=== PATIENT | female | born 1975 | race Caucasian/White ===

== ENCOUNTER 2018-11-26 21:38 | Emergency (ER) | payer SELFPAY ==
--- NOTE | 2018-11-26 22:00 | Emergency Department Record ---
History of Present Illness - General Chief complaint: ENT Stated complaint: PLUGGED EAR,COUGH, Time Seen by Provider: 11/26/18 21:57 Source: Patient Mode of Arrival: Ambulatory Limitations: No limitations - History of Present Illness Initial comments: 43 yo female presents to ED for evaluation or continued right ear pain despite taking Augmentin for the past 6 days. Patient reports continued pain posterior to the right ear, denies fevers, chills, or recent illness. Patient denies health problems at her baseline. MD complaint: Ear pain Onset/Timin -: Days(s) Location: R ear Severity: Moderate Severity scale (1-10): 4 Quality: Aching Consistency: Constant Improves with: None Worsens with: None - Related Data Home Medications Medication Instructions Recorded Confirmed Last Taken Loratadine [Claritin] 10 mg PO 11/26/18 11/26/18 Allergies Allergy/AdvReac Type Severity Reaction Status Date / Time No Known Drug Allergies Allergy Verified 11/26/18 21:54 Travel Screening - Travel/Exposure Within Last 30 Days Have you traveled within the last 30 days?: No Review of Systems Constitutional: Denies: Chills, Fever, Malaise, Night sweats Eyes: Denies: Eye discharge, Eye pain ENT: Reports: Ear pain. Denies: Dental pain, Epistaxis Respiratory: Denies: Cough, Dyspnea Cardiovascular: Denies: Chest pain, Dyspnea on exertion Endocrine: Denies: Fatigue, Heat or cold intolerance Gastrointestinal: Denies: Abdominal pain, Nausea, Vomiting Genitourinary: Denies: Incontinence, Retention Musculoskeletal: Denies: Arthralgia, Back pain Skin: Denies: Bruising, Change in color Neurological: Reports: Headache. Denies: Abnormal gait, Confusion, Seizure Psychiatric: Denies: Anxiety Hematological/Lymphatic: Denies: Anemia, Blood Clots Past Medical History - SOCIAL HISTORY Smoking Status: Former smoker Alcohol Use: Rare Drug Use: None - RESPIRATORY Hx Respiratory Disorders: No - CARDIOVASCULAR Hx Cardio Disorders: No - NEURO Hx Neuro Disorders: No - GI Hx GI Disorders: No - Hx Genitourinary Disorders: No - ENDOCRINE Hx Endocrine Disorders: No - MUSCULOSKELETAL Hx Musculoskeletal Disorders: No - PSYCH Hx Psych Problems: No - HEMATOLOGY/ONCOLOGY Hx Hematology/Oncology Disorders: No Family Medical History Any Significant Family History?: No Physical Exam - General General Appearance: Alert, Oriented x3, Cooperative, Mild distress Limitations: No limitations - Head Head exam: Atraumatic, Normocephalic, Normal inspection Head exam detail: negative: Abrasion, Contusion, Ortiz's sign, General tenderness, Hematoma, Laceration - Eye Eye exam: Normal appearance. negative: Conjunctival injection, Periorbital swelling, Periorbital tenderness, Scleral icterus - ENT Ear exam: Other (TTP over tate right posterior auricular/mastoid region on examination.). negative: Auricular hematoma, Auricular trauma Nasal Exam: negative: Active bleeding, Discharge, Dried blood, Foreign body Mouth exam: negative: Drooling, Laceration, Muffled voice, Tongue elevation Throat exam: negative: Tonsillar erythema, Tonsillomegaly, Tonsillar exudate, R peritonsillar mass, L peritonsillar mass - Neck Neck exam: Normal inspection. negative: Meningismus, Tenderness - Respiratory Respiratory exam: Normal lung sounds bilaterally. negative: Rales, Respiratory distress, Rhonchi, Stridor - Cardiovascular Cardiovascular Exam: Regular rate, Normal rhythm, Normal heart sounds - GI/Abdominal GI/Abdominal exam: Soft. negative: Rebound, Rigid, Tenderness - Rectal Rectal exam: Deferred - exam: Deferred - Extremities Extremities exam: Normal inspection. negative: Pedal edema, Tenderness - Back Back exam: Denies: CVA tenderness (R), CVA tenderness (L) - Neurological Neurological exam: Alert, Normal gait, Oriented X3 - Psychiatric Psychiatric exam: Normal affect, Normal mood - Skin Skin exam: Normal color. negative: Abrasion Type of lesion: negative: abrasion Course Vital Signs 11/26/18 11/26/18 21:46 21:47 Temperature 98.2 F Pulse Rate [ 80 Left] Respiratory 16 Rate Blood Pressure 136/80 [Left Arm] Pulse Ox 96 - Reevaluation(s) Reevaluation #1: 11/26/18 23:03 CT Brain: Fluid throughout the right middle ear and right mastoid air cells suggesting mastoiditis and possible otitis media. 11/26/18 23:08 Patient was updated on her CT imaging result Zosyn 4.5 grams IV ordered to initiate treatment. Will initiate transfer to [facility] for ENT consultation. Reevaluation #2: 11/26/18 23:22 [facility] 1-call returned call, ENT (Dr. Vela) does not perform mastoid surgery if needed. Patient was updated, will call [facility] per patient choice for transfer. Reevaluation #3: 11/26/18 23:[address] Romano (ENT on-call), will discuss with his attending and call back. 11/27/18 00:21 Case was discussed with Dr. Tang at [facility], they are currently at capacity and cannot accept the transfer. Reevaluation #4: 11/27/18 00:41 Laboratory studies were reviewed and appear grossly unremarkable for an acute process except for the following: CRP 2.32 ESR: 41 HF [facility] was contacted and are also at capacity. Currently have a call to [facility] for ENT consultation. Reevaluation #5: 11/27/18 01:05 Case was discussed with [facility], will accept the patient for ENT consultation. Patient was updated on all results, will initiate transfer. 11/27/18 01:08 [facility] called back, cannot accept the patient due to capacity. Will call [facility] for consultation. 11/27/18 01:51 Case was discussed with Dr. Mello (ENT [facility]), discussed patient's laboratory findings and examination, would like to see the patient in the office at noon (10 hours). Patient is in agreement with the plan of care as discussed. Medical Decision Making - Lab Data Result diagrams: 11/26/18 23:20 11/26/18 23:20 Critical Care Time Critical Care Time: Yes Total Critical Care Time: 60 Critical Care Time: Diagnosis and management of mastoiditis, IV antibiotic administration, numerous consultations for transfer and to arrange follow-up, frequent reassessments. Disposition Disposition: Discharge Clinical Impression: Mastoiditis of right side Disposition: Home, Self-Care Condition: (2) Stable Instructions: Mastoiditis (ED) Additional Instructions: Return to ED if your symptoms worsen or if you have any concerns. Follow-up with Dr. Calabrese at 10:00 AM today: Agatha Cheo Arreaga [address], [address] Phone #: [phone] Forms: Patient Portal Access Time of Disposition: 01:58 Quality - Quality Measures Quality Measures: N/A - Blood Pressure Screening Does Patient Have Any of the Following: No Blood Pressure Classification: Pre-Hypertensive BP Reading Systolic Measurement: 130 Diastolic Measurement: 81 Screening for High Blood Pressure: < Pre-Hypertensive BP, F/U Documented > [P5 127] Pre-Hypertensive Follow-up Interventions: Referral to alternative/primary care provider.
[2018-11-26] MEDS ORDERED: PIPERACILLIN SODIUM/TAZOBACTAM 4.5 GM in 0.9 % SODIUM CHLORIDE 100ML 100 ML IVPB ONE (23:10)
[2018-11-26 23:28] LABS: ABSOLUTE NEUTROPHIL COUNT 4.62; HEMOGLOBIN 12.4 gm/dl (11.6-16.0); RED BLOOD COUNT 4.23 M/uL (3.80-5.40); WHITE BLOOD COUNT W/O DIFF 8.4 K/uL (4.2-12.2)
[2018-11-26 23:29] LABS: BASO % 0.8 % (0-6); EOS % 3.8 % (0-6); GRAN % 55.1 % (47-80); HEMATOCRIT 38.7 % (35.0-47.0); MEAN CELL VOLUME 91.5 fl (81-97); MEAN CORPUSCULAR HEMOGLOBIN 29.3 pg (27-33); MEAN PLATELET VOLUME 9.4 fl (7.4-10.4); MONO % 7.3 % (0-9); PLATELET COUNT 593 K/uL (130-400); RED CELL DISTRIBUTION WIDTH 12.8 % (11.5-14.5)
[2018-11-26 23:41] LABS: BLOOD UREA NITROGEN 6 mg/dL (6-20); CREATININE 0.8 mg/dL (0.5-0.9); EST GLOMERULAR FILTRATION RATE > 60 mL/min
[2018-11-26 23:42] LABS: TOTAL PROTEIN 6.7 g/dL (6.6-8.7)
[2018-11-26 23:44] LABS: GLUCOSE,RANDOM 100 mg/dL (74-109)
[2018-11-26 23:47] LABS: ALB/GLOB RATIO 1.3 (1.1-1.8); ALBUMIN 3.8 g/dL (4.0-5.0); ALKALINE PHOSPHATASE 146 U/L (35-104); ALT/SGPT 57 U/L (<33); AST/SGOT 27 U/L (10.0-35.0); C-REACTIVE PROTEIN 2.32 mg/dL (<0.5)
[2018-11-27 00:04] LABS: ERYTHROCYTE SEDIMENTATION RATE 41 mm/hr (0-20)
[2018-11-27] MEDS ORDERED: IBUPROFEN 400 MG TABLET PO ONE (00:43)
--- NOTE | 2018-11-28 05:33 | CT SCAN REPORT ---
EXAM: CT SCAN HEAD WO CONTRAST HISTORY: PAIN IN RIGHT MASTOID AREA. PATIENT CANNOT HEAR OUT OF RIGHT EAR. TECHNIQUE: Routine noncontrast CT of the brain. COMPARISON: None. FINDINGS: The ventricles and subarachnoid spaces are normal in size. No area of abnormally increased or decreased attenuation is noted throughout the brain substance. The hedrick-white interfaces are distinct. No extra-axial fluid collection nor mass. No acute skull abnormality. There is opacification of much of the middle ear cavity and the majority of mastoid air cells. No definite mastoid air cell coalescence is seen, however. There is opacification of a few inferior left mastoid air cells. Minor mucosal thickening is noted within the inferior aspects of the frontal sinuses and a few bilateral ethmoid air cells as well as the left maxillary sinus. The orbits, as visualized, are unremarkable. IMPRESSION: 1. OPACIFICATION OF MUCH OF THE RIGHT MIDDLE EAR CAVITY SUSPICIOUS FOR MASTOIDITIS. NO DEFINITE ASSOCIATED BONE DESTRUCTION. THERE IS ALSO FLUID/OPACIFICATION OF THE MAJORITY OF RIGHT MASTOID AIR CELLS WITHOUT COALESCENCE CONSISTENT WITH NONSPECIFIC EFFUSION. MASTOIDITIS NOT EXCLUDED. OPACIFICATION OF A FEW INFERIOR LEFT MASTOID AIR CELLS WELL. 2. MINOR MUCOSAL THICKENING IN SEVERAL PARANASAL SINUSES. JOB NUMBER: [] MTDD
== END 2018-11-27 02:10 | disposition home or self-care (01) ==
LOC: ER 21:38
DX: H70.091 Acute mastoiditis with other complications, right ear (principal); Z87.891 Personal history of nicotine dependence
CPT/HCPCS: 70450; 80053; 85025; 85651; 86140; 96365; 99285; J2543

== ENCOUNTER 2019-03-28 20:57 | Emergency (ER) | payer MEDICAID ==
--- NOTE | 2019-03-28 21:04 | Emergency Department Record ---
History of Present Illness - General Chief complaint: Pain Stated complaint: HAS PAIN FROM A SHOT Time Seen by Provider: 03/28/19 21:01 Source: Patient Mode of Arrival: Ambulatory Limitations: No limitations - History of Present Illness Initial comments: 43 yo female presents with localized pain in her buttocks at the site of a rocephin injection. No fevers. No distal numbness, tingling or weakness. She has had rocephin in the past without similar symptoms. The shot was 6 days ago. MD Complaint: Other -: Days(s) (6) Location: Other History of Same: No Radiation: Other Quality: Aching Consistency: Constant Improves with: Nothing Worsens with: Palpation Associated Symptoms: Denies other symptoms - Related Data Home Medications Medication Instructions Recorded Confirmed Last Taken Acetaminophen with Codeine 1 each PO DAILY 03/28/19 03/28/19 Unknown [Tylenol with Codeine #3 Tablet] Allergies Allergy/AdvReac Type Severity Reaction Status Date / Time levofloxacin [From Levaquin] Allergy JOINT ACHES Verified 01/27/19 23:31 narcotis Allergy VOMITING Uncoded 01/27/19 23:31 Review of Systems Constitutional: Denies: Chills, Fever, Malaise, Weakness Eyes: Denies: Eye discharge ENT: Reports: Congestion (treated for a sinus infection). Denies: Throat pain Respiratory: Denies: Cough Cardiovascular: Denies: Chest pain, Syncope Endocrine: Denies: Fatigue Gastrointestinal: Denies: Abdominal pain, Diarrhea, Nausea, Vomiting Musculoskeletal: Reports: Other Skin: Denies: Bruising, Change in color, Rash Neurological: Denies: Headache Psychiatric: Denies: Anxiety Hematological/Lymphatic: Denies: Easy bleeding, Easy bruising Past Medical History - SOCIAL HISTORY Smoking Status: Former smoker Drug Use: None - RESPIRATORY Hx Respiratory Disorders: No - CARDIOVASCULAR Hx Cardio Disorders: No - NEURO Hx Neuro Disorders: No - GI Hx GI Disorders: Yes Hx Reflux: Yes - Hx Genitourinary Disorders: Yes Hx Kidney Stones: Yes - ENDOCRINE Hx Endocrine Disorders: No - MUSCULOSKELETAL Hx Musculoskeletal Disorders: No - PSYCH Hx Psych Problems: No - HEMATOLOGY/ONCOLOGY Hx Hematology/Oncology Disorders: No Family Medical History Hx Heart Disease: Brother/Sister Physical Exam - General General Appearance: Alert, Oriented x3, Cooperative, No acute distress Limitations: No limitations - Head Head exam: Atraumatic - Eye Eye exam: Normal appearance - ENT ENT exam: Normal exam Ear exam: Normal external inspection Nasal Exam: Normal inspection - Neck Neck exam: Normal inspection - Respiratory Respiratory exam: Normal lung sounds bilaterally. negative: Respiratory distress - Cardiovascular Cardiovascular Exam: Regular rate, Normal rhythm, Normal heart sounds - Rectal Rectal exam: Deferred - exam: Deferred - Extremities Extremities exam: Full ROM, Tenderness. negative: Pedal edema Image of Full Body: 1 - 2cm bruise, no swelling, no firmness, no redness or erythema, no fluctuance, no signs of bleeding, hematoma or infection - Back Back exam: Reports: Full ROM. Denies: CVA tenderness (R), CVA tenderness (L), Tenderness - Neurological Neurological exam: Alert, Normal gait, Oriented X3, Other (Normal foot flexion and extension, normal SLT). negative: Abnormal gait, Motor sensory deficit - Psychiatric Psychiatric exam: Normal affect, Normal mood. negative: Agitated, Anxious - Skin Skin exam: Dry, Intact, Normal color, Warm Course - Reevaluation(s) Reevaluation #1: 03/28/19 21:20 Normal examination except the 2cm superficial bruise The examination does not demonstrate any signs of adverse reaction, allergic reaction, infection, swelling, hematoma I offered CT if not improving in the next 1-2 days. No indication at this time for CT with radiation risk vs benefit with very normal examination Disposition Disposition: Discharge Clinical Impression: Myalgia, Localized adverse drug reaction Disposition: Home, Self-Care Condition: (1) Good Additional Instructions: Return or be seen immediately if you have redness, swelling or fever Return to be rechecked if the pain is worse in the next 1-2 days Rest. Ice the area 3-4 times. I recommend to prolonged standing or walking Forms: Patient Portal Access Time of Disposition: 21:18 Quality - Quality Measures Quality Measures: N/A - Blood Pressure Screening Does Patient Have Any of the Following: No Blood Pressure Classification: Pre-Hypertensive BP Reading Systolic Measurement: 130 Diastolic Measurement: 78 Screening for High Blood Pressure: < Pre-Hypertensive BP, F/U Documented > [G2658] Pre-Hypertensive Follow-up Interventions: Referral to alternative/primary care provider.
== END 2019-03-28 21:33 | disposition home or self-care (01) ==
LOC: ER 20:57
DX: T36.1X5A Adverse effect of cephalosporins and other beta-lactam antibiotics, initial encounter (principal); R52 Pain, unspecified; Z87.891 Personal history of nicotine dependence
CPT/HCPCS: 99282

== ENCOUNTER 2019-04-25 21:43 | Emergency (ER) | payer MEDICAID ==
--- NOTE | 2019-04-25 21:59 | Emergency Department Record ---
History of Present Illness - General Chief complaint: Pain Stated complaint: ALL OVER PAIN Time Seen by Provider: 04/25/19 21:56 Source: Patient Mode of Arrival: Ambulatory Limitations: No limitations - History of Present Illness Initial comments: 43 yo female presents with pain all over her body. 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 No fever. No skin changes, no joint swelling or abnormal warmth. She has chronic symptoms. She has recently seen a photo machine operator and has a follow visit to review symptoms. MD Complaint: Diffuse Onset/Timin -: Days(s) Location: Bilateral, Arm, Foot, Lower Leg, Shoulder History of Same: Yes Severity scale (1-10): 7 Quality: Aching Consistency: Constant, Getting worse Improves with: Nothing Worsens with: Exertion, Walking Associated Symptoms: Denies other symptoms - Related Data Home Medications Medication Instructions Recorded Confirmed Last Taken Levothyroxine Sodium [Synthroid] 25 mcg PO DAILY 04/25/19 04/25/19 04/25/19 Allergies Allergy/AdvReac Type Severity Reaction Status Date / Time levofloxacin [From Levaquin] Allergy JOINT ACHES Verified 01/27/19 23:31 narcotis Allergy VOMITING Uncoded 01/27/19 23:31 Travel Screening - Travel/Exposure Within Last 30 Days Have you traveled within the last 30 days?: No - Travel/Exposure Within Last Year Have you traveled outside the [place] in the last year?: No - Additonal Travel Details Have you been exposed to anyone with a communicable illness?: No - Travel Symptoms Symptom Screening: None Review of Systems Constitutional: Denies: Chills, Fever, Malaise, Weakness Eyes: Denies: Eye discharge ENT: Denies: Congestion, Throat pain Respiratory: Denies: Cough, Dyspnea Cardiovascular: Denies: Chest pain, Palpitations, Syncope Endocrine: Denies: Fatigue Gastrointestinal: Denies: Abdominal pain, Diarrhea, Nausea, Vomiting Genitourinary: Denies: Dysuria, Urgency Musculoskeletal: Reports: Arthralgia, Myalgia. Denies: Joint swelling, Neck pain Skin: Denies: Bruising, Change in color, Rash Neurological: Denies: Headache, Numbness, Tremors, Vertigo, Weakness Psychiatric: Denies: Anxiety Hematological/Lymphatic: Denies: Easy bleeding, Easy bruising Past Medical History - SOCIAL HISTORY Smoking Status: Former smoker Alcohol Use: Rare Drug Use: None - RESPIRATORY Hx Respiratory Disorders: No - CARDIOVASCULAR Hx Cardio Disorders: No - NEURO Hx Neuro Disorders: No - GI Hx GI Disorders: Yes Hx Reflux: Yes - Hx Genitourinary Disorders: Yes Hx Kidney Stones: Yes - ENDOCRINE Hx Endocrine Disorders: Yes Hx Thyroid Disease: Yes - MUSCULOSKELETAL Hx Musculoskeletal Disorders: No Comment:: d/t levaquin toxicity - PSYCH Hx Psych Problems: No - HEMATOLOGY/ONCOLOGY Hx Hematology/Oncology Disorders: No Family Medical History Any Significant Family History?: Yes Hx Heart Disease: Brother/Sister Physical Exam - General General Appearance: Alert, Oriented x3, Cooperative, No acute distress Limitations: No limitations - Head Head exam: Atraumatic, Normal inspection - Eye Eye exam: Normal appearance, PERRL. negative: Conjunctival injection, Scleral icterus - ENT ENT exam: Normal exam Ear exam: Normal external inspection Nasal Exam: Normal inspection Mouth exam: Normal external inspection - Neck Neck exam: Normal inspection, Full ROM. negative: Lymphadenopathy, Meningismus, Tenderness, Thyromegaly - Respiratory Respiratory exam: Normal lung sounds bilaterally. negative: Respiratory distress - Cardiovascular Cardiovascular Exam: Regular rate, Normal rhythm, Normal heart sounds - GI/Abdominal GI/Abdominal exam: Soft. negative: Tenderness - Rectal Rectal exam: Deferred - exam: Deferred - Extremities Extremities exam: Normal inspection, Full ROM, Normal capillary refill, Tenderness, Other (normal inspection of joints). negative: Calf tenderness, Joint swelling, Pedal edema - Back Back exam: Reports: Full ROM. Denies: CVA tenderness (R), CVA tenderness (L), Paraspinal tenderness, Tenderness - Neurological Neurological exam: Alert, Normal gait, Oriented X3. negative: Motor sensory deficit - Psychiatric Psychiatric exam: Normal affect, Normal mood - Skin Skin exam: Dry, Intact, Normal color, Warm Course Vital Signs 04/25/19 21:50 Temperature 97.4 F L Pulse Rate [ 96 H Right] Respiratory 20 Rate Blood Pressure 146/89 [Right Arm] Pulse Ox 98 Disposition Disposition: Discharge Clinical Impression: Arthralgia Disposition: Home, Self-Care Condition: (1) Good Instructions: Arthralgia (ED) Additional Instructions: Review this ER visit and the tests performed with your family doctor and photo machine operator Call your doctor for the next available follow up appointment Return to the ER for a recheck immediately if worse, any new concerns or questions Forms: Patient Portal Access Quality - Quality Measures Quality Measures: N/A - Blood Pressure Screening Does Patient Have Any of the Following: No Blood Pressure Classification: Pre-Hypertensive BP Reading Systolic Measurement: 146 Diastolic Measurement: 89 Screening for High Blood Pressure: < Pre-Hypertensive BP, F/U Documented > [G8950] Pre-Hypertensive Follow-up Interventions: Referral to alternative/primary care provider.
[2019-04-25] MEDS ORDERED: KETOROLAC 30 MG/ML VIAL IM ONE (22:03)
== END 2019-04-25 22:32 | disposition home or self-care (01) ==
LOC: ER 21:43
DX: G89.29 Other chronic pain (principal); M25.512 Pain in left shoulder; M25.511 Pain in right shoulder; M25.572 Pain in left ankle and joints of left foot; M25.571 Pain in right ankle and joints of right foot; Z87.891 Personal history of nicotine dependence
CPT/HCPCS: 99283 ×2; 96372; J1885